=== PATIENT | female | born 1960 | race Caucasian/White ===

== ENCOUNTER 2018-08-31 10:00 | Inpatient (IN) | payer OTHER ==
[~2018-08-31] VITALS: Ht 152.4 cm; Wt 90.7 kg
[2018-08-31] MEDS ORDERED: CRESTOR5 MG PO (11:37)
[2018-08-31] MEDS ORDERED: AVALIDE 300-121 EACH PO (11:37)
[2018-08-31] MEDS ORDERED: CLONAZEPAM0.5 M1 PO (11:38)
[2018-08-31] MEDS ORDERED: CATAFAN PO (11:38)
[2018-08-31] MEDS ORDERED: FIORICET PO (11:38)
[2018-09-09] MEDS ORDERED: DOCUSATE SODIU100 MG PO (11:23)
[2018-09-09] MEDS ORDERED: PERCOCET 5-3251 EACH PO (11:24)
[2018-09-09] MEDS ORDERED: CLONAZEPAM0.5 M1 PO (11:24)
== END 2018-09-09 13:40 | disposition home or self-care (01) | DRG 454 ==
LOC: O/R 09-08 05:50 → SURH 09-08 10:00
PROVIDERS: ADMIT Orthopaedic Surgery Orthopaedic Surgery of the Spine
PROC: 0RG2071 Fusion of 2 or more Cervical Vertebral Joints with Autologous Tissue Substitute, Posterior Approach, Posterior Column, Open Approach (ICD-10-PCS; 2018-09-08)
PROC: 0RT30ZZ Resection of Cervical Vertebral Disc, Open Approach (ICD-10-PCS; 2018-09-08)
PROC: 07DS3ZZ Extraction of Vertebral Bone Marrow, Percutaneous Approach (ICD-10-PCS; 2018-09-08)
PROC: 0RG20A0 Fusion of 2 or more Cervical Vertebral Joints with Interbody Fusion Device, Anterior Approach, Anterior Column, Open Approach (ICD-10-PCS; principal; 2018-09-08 10:00)
DX: M47.12 Other spondylosis with myelopathy, cervical region (principal); M50.022 Cervical disc disorder at C5-C6 level with myelopathy; I10 Essential (primary) hypertension

== ENCOUNTER 2019-05-11 14:30 | Inpatient (IN) | payer OTHER ==
[~2019-05-11 14:30] MED LIST: AVALIDE 300-121 EACH PO; CATAFAN PO; CLONAZEPAM0.5 M1 PO; CRESTOR5 MG PO; DOCUSATE SODIU100 MG PO; FIORICET PO; PERCOCET 5-3251 EACH PO; TOPROL XL25 M1 PO
[2019-05-18] MEDS ORDERED: BUTALBIT-ACETA1 EACH (11:24)
[2019-05-18] MEDS ORDERED: PERCOCET 5-3251 EACH PO (14:02)
[2019-05-18] MEDS ORDERED: BACTRIM DS TAB1 EACH PO (14:03)
[2019-05-18] MEDS ORDERED: CLONAZEPAM0.5 M1 PO (14:03)
[2019-05-18] MEDS ORDERED: GABAPENTIN800 MG PO (14:04)
[2019-05-18] MEDS ORDERED: COLACE100 MG PO (14:04)
[2019-05-18] MEDS ORDERED: MEDROLPACK PO (14:05)
== END 2019-05-19 14:56 | disposition home or self-care (01) | DRG 460 ==
LOC: O/R 14:30 → SURG 05-18 06:18 → RECOVERY 05-18 12:30 → SURG 05-18 15:23
PROVIDERS: ADMIT Orthopaedic Surgery Orthopaedic Surgery of the Spine
PROC: 0SG00AJ Fusion of Lumbar Vertebral Joint with Interbody Fusion Device, Posterior Approach, Anterior Column, Open Approach (ICD-10-PCS; 2019-05-18)
PROC: 0ST20ZZ Resection of Lumbar Vertebral Disc, Open Approach (ICD-10-PCS; 2019-05-18)
PROC: 07DS3ZZ Extraction of Vertebral Bone Marrow, Percutaneous Approach (ICD-10-PCS; 2019-05-18)
PROC: 0SG00A0 Fusion of Lumbar Vertebral Joint with Interbody Fusion Device, Anterior Approach, Anterior Column, Open Approach (ICD-10-PCS; principal; 2019-05-18 12:30)
DX: M48.061 Spinal stenosis, lumbar region without neurogenic claudication (principal); M43.16 Spondylolisthesis, lumbar region; M51.36 Other intervertebral disc degeneration, lumbar region; I10 Essential (primary) hypertension